=== PATIENT | female | born 1970 | race Two or more races ===

== ENCOUNTER → 2024-02-27 | Outpatient (CLI) | payer MEDICAID, SELFPAY ==
--- NOTE | 2024-02-27 10:15 | XR_ITS ---
Examination: Diagnostic digital mammography, bilateral Computer aided detection 3-D breast Tomosynthesis, bilateral Date and time of exam: February 27, 2024 0945 hours Compared to mammograms dating to July 03, 2019 INDICATIONS: Personal history right breast cancer 2018 Technique: Nonmagnified MLO, CC views of the breasts to been obtained, reconstructed from 3-D Tomosynthesis images. R2 computer aided detection program utilized for evaluation of suspicious masses and/or abnormal calcifications. 3-D Tomosynthesis images obtained. Findings: The breasts are heterogeneously dense, which may obscure small masses Extensive scar formation surgical clips right breast again depicted 8 mm focal asymmetry 12:00 position left breast anterior depth Impression: BI-RADS Category 0: Incomplete: Need additional imaging evaluation 8 mm focal asymmetry 12:00 position left breast anterior depth, recommend follow-up spot tomographic views of this asymmetry as well as left breast sonography to complete the workup
== END | disposition home or self-care (01) ==
LOC: CDIM 09:35
PROVIDERS: Referring Provider Family Medicine; Visit Provider Family Medicine
DX: R92.8 Other abnormal and inconclusive findings on diagnostic imaging of breast (principal); N64.89 Other specified disorders of breast
CPT/HCPCS: 77062; 77066; G0279

== ENCOUNTER → 2024-04-18 | Outpatient (CLI) | payer MEDICAID, SELFPAY ==
--- NOTE | 2024-04-18 08:45 | XR_ITS ---
Examination: Breast ultrasound, unilateral, left complete Date and time of exam: April 18, 2024 0727 hours INDICATIONS: Personal history right breast cancer, multiple left breast nodules on left breast sonogram June 07, 2013 Technique: Real-time velasco scale ultrasonographic imaging performed left breast including all 4 quadrants as well as nipple retroareolar and axillary region. Findings: No cystic or solid masses IMPRESSION: BI-RADS Category 1: Negative study
--- NOTE | 2024-04-18 09:15 | XR_ITS ---
Examination: Diagnostic digital mammography, unilateral, left Computer aided detection 3-D breast Tomosynthesis, unilateral Date and time of exam: April 18, 2024 0743 hours INDICATIONS: Mammogram February 27, 2024 8 mm focal asymmetry 12:00 position left breast anterior depth Technique: Nonmagnified MLO, CC views of the left breast have been obtained, reconstructed from 3-D Tomosynthesis images. R2 computer aided detection program utilized for evaluation of suspicious masses and/or abnormal calcifications. 3-D Tomosynthesis images obtained. Findings: The breast is heterogeneously dense, which may obscure small masses No suspicious masses confirmed on the spot compression views Impression: BI-RADS category 2: Benign findings Return to yearly follow-up mammography
== END | disposition home or self-care (01) ==
LOC: CDIM 07:06
PROVIDERS: PCP Family Medicine; Referring Provider Family Medicine; Visit Provider Family Medicine
DX: R92.322 Mammographic fibroglandular density, left breast (principal); Z48.02 Encounter for removal of sutures
CPT/HCPCS: 76641; 77061; 77065; G0279

== ENCOUNTER 2024-04-19 09:10 | Outpatient (RCR) | payer MEDICAID, SELFPAY ==
[2024-04-18 16:17] LABS: Basophils % (Auto) 0 % (0-2.5); Eosinophils # (Auto) 0.1 Thou/mm3 (0.0-0.5); Eosinophils % (Auto) 1 % (0-10); Hematocrit 37.5 % (36.0-46.0); Hemoglobin 11.8 g/dL (12.0-16.0); Immature Granulocytes % (Auto) 0 % (0-0); Immature Granulocytes Auto 0.02 Thou/mm3 (0.00-0.00); Lymphocytes # (Auto) 2.5 Thou/mm3 (1.0-4.8); Lymphocytes % (Auto) 30 % (10-50); Mean Corpuscular HGB Conc 31.5 g/dl (31.0-37.0); Mean Corpuscular Hemoglobin 25.7 pg (25.0-35.0); Mean Corpuscular Volume 82 fL (80-100); Monocytes # (Auto) 0.5 Thou/mm3 (0.0-0.8); Monocytes % (Auto) 6 % (0-12); Neutrophils # (Auto) 5.4 Thou/mm3 (1.8-7.7); Neutrophils % (Auto) 64 % (37-80); Nucleated Red Blood Cell % 0 /100 WBC (0); Platelet Count 314 Thou/mm3 (140-440); RDW Standard Deviation 39.2 fL (36.4-46.3); Red Blood Count 4.59 Miln/mm3 (4.00-5.20); White Blood Count 8.5 Thou/mm3 (3.6-11.0)
[2024-04-18 16:36] LABS: Alanine Aminotransferase 26 U/L (10-49); Albumin, Serum 4.6 gm/dL (3.5-5.0); Albumin/Globulin Ratio 1.4 (1.2-2.2); Alkaline Phosphatase 65 U/L (46-116); Anion Gap 12 (7-16); Aspartate Amino Transferase 25 U/L (0-34); BUN/Creatinine Ratio 17 Ratio (12-20); Bilirubin,Total 0.8 mg/dL (0.3-1.2); Blood Urea Nitrogen 12 mg/dL (9-23); Calcium 9.7 mg/dL (8.3-10.6); Calcium (Corrected) 9.7 mg/dL (8.5-10.1); Carbon Dioxide 25.5 mMol/L (20.0-31.0); Chloride 103 mMol/L (98-107); Creatinine (Component) 0.7 mg/dL (0.6-1.3); Globulin 3.4 gm/dL (2.3-3.5); Glucose 95 mg/dL (74-106); Osmolality,Calculated 279 (275-295); Potassium 3.5 mMol/L (3.4-5.1); Sodium 140 mMol/L (136-145); eGFR > 60 See Note
[2024-04-18 16:53] LABS: CA 15-3 2.9 U/mL (<32.4); Carcinoembryonic Antigen < 0.5 ng/mL (0.0-5.0)
--- NOTE | 2024-04-19 13:15 | CTCFLWUP_ITS ---
Patient: JOHN VALDIVIA : 1970 Page 2 of 2 FOLLOW UP NOTE DATE OF SERVICE: 04/19/2024 NAME: JOHN VALDIVIA ACCOUNT: [id number] : 1970 AGE: 54 INTERVAL HISTORY: Patient doing well. Patient takes anastrozole along with alendronate. Patient is doing well and hav e no complaints. ONCOLOGY HISTORY: DIAGNOSIS: Malignant neoplasm of upper-outer quadrant of right female breast [ICD10] C50.411 DATE OF DIAGNOSIS: 06/17/2017 STAGE/TNM: stage IIa, pT2, N0,cM0 disease ER positive IL negative HER2 positive treated with TCH P On Femara TREATMENT HISTORY: Care?Plan Start?Date Cycle Day Intent DOCETAXEL,?HERCEPTIN,?PERJETA,?CARBO 08/31/2017 1 21 Curative?(adjuvant) Trastuzumab?6?mg/kg? To?Finish?the?Year 08/30/2017 1 21 Curative?(adjuvant) VENOfer?200mg?IV?wkly 04/16/2020 1 70 Palliative VENOfer?200mg?IV?wkly?for?5?weeks 03/24/2022 1 70 Curative?(primary) HISTORY OF PRESENT ILLNESS: John Martin is a 54-year-old Turkmen-speaking female, postmenopausal with history of total vaginal hysterectomy (08/12/2009) when she was 39 years of age, has the followin g oncology history. 06/17/2017: Patient had right breast lumpectomy and sentinel node biopsy. Pathology specimen showed 4 .2 x 3.9 x 3.4 cm high-grade ER positive IL negative HER-2/manav overexpressed invasive ductal carcinoma with medullar y features. 3 sentinel lymph nodes were negative for metastatic disease. No lymphovascular invasion was identified . It was staged as stage IIa, pT2, N0,cM0 disease. Patient had echocardiogram done on 08/16/2017 which showed her ejecti on fraction to be within normal range between 50 and 55%. 08/31/2017?12/20/2017: Patient received 6 cycles of TCH plus Perjeta in the adjuvant setting. 02/24/2018: DEXA scan?There is normal mineralization based on lumbar spine measurements. There is normal mineralization based on hip measurements 03/24/2018: Total serum estrogens 72.4 (postmenopausal range 50?1 70), luteinizing hormone 41 (postme nopausal range 10?50 4.7), FSH 60.38 (postmenopausal range 23?1 116.3) 01/24/2018?03/17/2018: Patient had 6300 cGy of radiation therapy to the right breast. 04/24/2018: Patient was started on Femara 2.5 mg p.o. daily 08/31/2017? 08/23/2018: Patient received a total of 17 Herceptin treatments including the ones given dur ing TC chemotherapy. 10/13/2020: Bone densitometry? 02/17/2022: Bilateral screening mammograms? 04/11/2023: Bone density test? OTHER MEDICAL HISTORY/CONDITIONS: FAMILY HISTORY: ?Clone Family Hx? SOCIAL HISTORY: [employer]ER HISTORY: MEDICATIONS: 1. alendronate - 35 mg 1 tab one tab po q weekly 2. busPIRone - 15 mg 1 tab As directed 3. Citracal Chew - 500 mg-1,000 unit-40 mcg 1 tab one tab po twice a day 4. letrozole - 2.5 mg 1 tab Daily 5. losartan - 50 mg As directed 6. Womens Daily Gummies - 200 mcg 1 tab Daily?Palabra Meds? Medications Last Reconciled by Alesia Joe MA on 04/19/2024 ALLERGIES: No Known Allergies; No Known Drug Allergies REVIEW OF SYSTEMS: A complete 14-point review of systems was performed and is negative except as noted in interval histo ry. PHYSICAL EXAMINATION: VITAL SIGNS: Temperature?99.1, B/P?145/90, Oxygen?Saturation?96% Weight?222?lbs (Change?since?04/18/24 :?1.4?lbs) PAIN: 0 - No pain ECOG Performance Status: 0 - Asymptomatic and fully active GENERAL APPEARANCE: Appears well, in no apparent distress, appropriately interactive. HEENT: Normocephalic, no temporal wasting, normal conjunctiva, no scleral icterus, normal hearing, li ps without lesions, neck normal range of motion. CARDIOVASCULAR: Not assessed. PULMONARY: Normal respiratory effort, no respiratory distress or use of accessory muscles, speaking i n full sentences, no tachypnea. EXTREMITIES: No pedal edema or cyanosis. SKIN: Normal skin appearance. NEUROLOGIC: Alert and oriented x4. PSHYCHIATRIC: Appropriate affect, mood normal, behavior normal, intact thought and speech. Breast examination reveals thickened breast but no palpable masses LABORATORY DATA: I have personally reviewed and interpreted each of the patient?s relevant lab tests, abnormal finding s are below: Date 04/18/24 ??WHITE?BLOOD?COUNT?(Thou/mm3) 8.5 ??RED?BLOOD?COUNT?(Miln/mm3) 4.59 ??HEMOGLOBIN?(gm/dl) 11.8?L ??HEMATOCRIT?(%) 37.5 ??PLATELET?COUNT?(Thou/mm3) 314 ??NEUTROPHILS?%,?AUTO?(%) 64 ??LYMPH?%,?AUTO?(%) 30 ??NEUTROPHILS,?AUTO?(Thou/mm3) 5.4 ASSESSMENT/PLAN: #1 stage II breast cancer Ms. Valdivia is tolerating letrozole well without any significant side effects. Denies any body aches or muscle pains. Bone density test done on 04/11/2023 showed osteopenia. ER positive, IL negative HER-2/manav overexpressed high-grade invasive ductal carcinoma with medullary features of right breast. No clinical evidence of recurrence. Currently patient is on Femara and [id number]-[id number] calcium tablets. Continue Citracal 1 tablet p.o. twice daily. #2 worsening osteopenia Patient is having worsening osteopenia in the spine Patient have backache at times patient is on Alendronate 35 mg p.o. once a week. Discussed with Ms. Valdivia that patient need Zometa or Prolia to prevent further loss of her bon e density Will start Zometa once patient is cleared by the dentist Zometa will help to strengthen patient's back and prevent further loss of bone as well as adjuvantly will help to prevent reoccurrence of breast cancer and metastasis to the bones Will start Zometa once cleared by dentist CBC CMP Zometa RETURN TO CLINIC: I will see her back in the clinic in 3 months. BILLING AND COMPLIANCE: I reviewed external records from providers outside my specialty as summarized above. I spent a total of 50 minutes on this patient?s care on the day of their visit excluding time spent related to any bi lled procedures. This time includes time spent with the patient as well as time spent documenting in the medical record, reviewing patients records and tests, obtaining history, placing orders, communi cating with other healthcare professionals, counseling the patient, family or caregiver, and/or care coordination for the diagnoses above. Electronically Signed by: Gaurav Farias MD T: 1:13 PM CC: Mike?Ron,?, Chio?Frankie? PCP: Mike Velasquez Referring: Mike Velasquez This document was completed utilizing speech recognition software. Grammatical errors, random word in sertions, pronoun errors, and incomplete sentences are an occasional consequence of this system due t o software limitations, ambient noise, and hardware issues. Any formal questions or concerns about th e content, text or information contained within the body of this dictation should be directly address ed to the provider for clarification.
== END 2024-04-27 23:59 | disposition home or self-care (01) ==
LOC: SCTC 09:10
PROVIDERS: PCP Family Medicine; Referring Provider Family Medicine; Visit Provider Internal Medicine Hematology & Oncology
DX: C50.411 Malignant neoplasm of upper-outer quadrant of right female breast (principal); Z17.0 Estrogen receptor positive status [ER+]; Z17.22 Progesterone receptor negative status; Z17.31 Human epidermal growth factor receptor 2 positive status; M85.88 Other specified disorders of bone density and structure, other site; Z79.811 Long term (current) use of aromatase inhibitors
CPT/HCPCS: 36591; 80053; 82378; 85025; 86300; 99212; A4216; J1642; G0463

== ENCOUNTER → 2024-06-14 | Outpatient (CLI) | payer MEDICAID, SELFPAY ==
--- NOTE | 2024-06-14 11:30 | XR_ITS ---
Examination: Screening digital mammography, bilateral Computer aided detection 3-D breast Tomosynthesis, bilateral Date and time of exam: June 14, 2024 0941 hours Compared to mammograms dating to February 03, 2021 Indication: Screening Technique: Nonmagnified MLO, CC views of the breasts to been obtained, reconstructed from 3-D Tomosynthesis images. R2 computer aided detection program utilized for evaluation of suspicious masses and/or abnormal calcifications. 3-D Tomosynthesis images obtained. Findings: The breasts are heterogeneously dense, which may obscure small masses Extensive scar formation right breast surgical clips skin thickening again noted consistent with treated right breast cancer 2017 6 mm focal asymmetry upper left breast MLO view anterior depth, 9 cm from the nipple Impression: BI-RADS Category 0: Incomplete: Need additional imaging evaluation 6 mm focal asymmetry upper left breast MLO view 9 cm from the nipple, recommend follow-up spot tomographic views upper quadrant left breast, right breast sonography to complete the workup, as left breast sonography has already been performed April 18, 2024
== END | disposition home or self-care (01) ==
LOC: CDIM 10:01
PROVIDERS: Referring Provider Internal Medicine Hematology & Oncology; Visit Provider Internal Medicine Hematology & Oncology
DX: Z12.31 Encounter for screening mammogram for malignant neoplasm of breast (principal); R92.8 Other abnormal and inconclusive findings on diagnostic imaging of breast; N64.89 Other specified disorders of breast; C50.411 Malignant neoplasm of upper-outer quadrant of right female breast
CPT/HCPCS: 77063; 77067

== ENCOUNTER 2024-08-23 14:13 | Outpatient (RCR) | payer MEDICAID, SELFPAY ==
[2024-08-23 15:43] LABS: Basophils % (Auto) 0 % (0-2.5); Eosinophils # (Auto) 0.1 Thou/mm3 (0.0-0.5); Eosinophils % (Auto) 1 % (0-10); Hematocrit 38.5 % (36.0-46.0); Hemoglobin 12.6 g/dL (12.0-16.0); Immature Granulocytes % (Auto) 0 % (0-0); Immature Granulocytes Auto 0.02 Thou/mm3 (0.00-0.00); Lymphocytes # (Auto) 2.8 Thou/mm3 (1.0-4.8); Lymphocytes % (Auto) 28 % (10-50); Mean Corpuscular HGB Conc 32.7 g/dl (31.0-37.0); Mean Corpuscular Hemoglobin 26.1 pg (25.0-35.0); Mean Corpuscular Volume 80 fL (80-100); Monocytes # (Auto) 0.7 Thou/mm3 (0.0-0.8); Monocytes % (Auto) 7 % (0-12); Neutrophils # (Auto) 6.3 Thou/mm3 (1.8-7.7); Neutrophils % (Auto) 64 % (37-80); Nucleated Red Blood Cell % 0 /100 WBC (0); Platelet Count 347 Thou/mm3 (140-440); RDW Standard Deviation 37.3 fL (36.4-46.3); Red Blood Count 4.83 Miln/mm3 (4.00-5.20); White Blood Count 9.9 Thou/mm3 (3.6-11.0)
[2024-08-23 16:15] LABS: Alanine Aminotransferase 43 U/L (10-49); Albumin, Serum 4.6 gm/dL (3.5-5.0); Albumin/Globulin Ratio 1.5 (1.2-2.2); Alkaline Phosphatase 65 U/L (46-116); Anion Gap 12 (7-16); Aspartate Amino Transferase 45 U/L (0-34); BUN/Creatinine Ratio 16 Ratio (12-20); Bilirubin,Total 0.9 mg/dL (0.3-1.2); Blood Urea Nitrogen 13 mg/dL (9-23); Calcium 9.2 mg/dL (8.3-10.6); Calcium (Corrected) 9.2 mg/dL (8.5-10.1); Carbon Dioxide 25.2 mMol/L (20.0-31.0); Chloride 104 mMol/L (98-107); Creatinine (Component) 0.8 mg/dL (0.6-1.3); Globulin 3.1 gm/dL (2.3-3.5); Glucose 108 mg/dL (74-106); Osmolality,Calculated 282 (275-295); Potassium 3.8 mMol/L (3.4-5.1); Sodium 141 mMol/L (136-145); Total Protein 7.7 gm/dL (5.7-8.2); eGFR > 60 See Note
[2024-08-23 16:32] LABS: CA 15-3 1.3 U/mL (<32.4); Carcinoembryonic Antigen < 0.5 ng/mL (0.0-5.0)
== END 2024-08-25 23:59 | disposition home or self-care (01) ==
LOC: SCTC 14:13
PROVIDERS: PCP Family Medicine; Referring Provider Family Medicine; Visit Provider Internal Medicine Hematology & Oncology
DX: C50.411 Malignant neoplasm of upper-outer quadrant of right female breast (principal); Z17.0 Estrogen receptor positive status [ER+]; Z17.22 Progesterone receptor negative status; Z17.32 Human epidermal growth factor receptor 2 negative status; Z79.811 Long term (current) use of aromatase inhibitors; M85.88 Other specified disorders of bone density and structure, other site; Z90.11 Acquired absence of right breast and nipple
CPT/HCPCS: 36591; 80053; 82378; 85025; 86300; A4216; J1642

== ENCOUNTER 2024-10-25 13:26 | Outpatient (RCR) | payer MEDICAID, SELFPAY ==
[2024-10-25 16:36] LABS: Basophils # (Auto) 0.0 Thou/mm3 (0.0-0.2); Basophils % (Auto) 1 % (0-2.5); Eosinophils # (Auto) 0.1 Thou/mm3 (0.0-0.5); Eosinophils % (Auto) 1 % (0-10); Hematocrit 38.9 % (36.0-46.0); Hemoglobin 12.5 g/dL (12.0-16.0); Immature Granulocytes Auto 0.02 Thou/mm3 (0.00-0.00); Lymphocytes # (Auto) 2.5 Thou/mm3 (1.0-4.8); Lymphocytes % (Auto) 31 % (10-50); Mean Corpuscular HGB Conc 32.1 g/dl (31.0-37.0); Mean Corpuscular Hemoglobin 26.2 pg (25.0-35.0); Mean Corpuscular Volume 81 fL (80-100); Monocytes # (Auto) 0.4 Thou/mm3 (0.0-0.8); Monocytes % (Auto) 5 % (0-12); Neutrophils # (Auto) 5.0 Thou/mm3 (1.8-7.7); Neutrophils % (Auto) 63 % (37-80); Nucleated Red Blood Cell # 0.00 Thou/mm3 (0.00-0.00); Nucleated Red Blood Cell % 0 /100 WBC (0); Platelet Count 331 Thou/mm3 (140-440); RDW Standard Deviation 38.8 fL (36.4-46.3); Red Blood Count 4.78 Miln/mm3 (4.00-5.20); White Blood Count 8.0 Thou/mm3 (3.6-11.0)
[2024-10-25 17:00] LABS: Alanine Aminotransferase 51 U/L (10-49); Albumin, Serum 4.4 gm/dL (3.5-5.0); Albumin/Globulin Ratio 1.3 (1.2-2.2); Alkaline Phosphatase 65 U/L (46-116); Anion Gap 10 (7-16); Aspartate Amino Transferase 55 U/L (0-34); BUN/Creatinine Ratio 17 Ratio (12-20); Bilirubin,Total 0.6 mg/dL (0.3-1.2); Blood Urea Nitrogen 12 mg/dL (9-23); Calcium 10.1 mg/dL (8.3-10.6); Calcium (Corrected) 10.1 mg/dL (8.5-10.1); Carbon Dioxide 26.0 mMol/L (20.0-31.0); Chloride 105 mMol/L (98-107); Creatinine (Component) 0.7 mg/dL (0.6-1.3); Globulin 3.4 gm/dL (2.3-3.5); Glucose 103 mg/dL (74-106); Osmolality,Calculated 280 (275-295); Potassium 3.5 mMol/L (3.4-5.1); Sodium 141 mMol/L (136-145); Total Protein 7.8 gm/dL (5.7-8.2); eGFR > 60 See Note
[2024-10-25 17:52] LABS: Hepatitis A Antibody IgM Non Reactive (Non React); Hepatitis B Core Antibody IgM Non Reactive (Non React); Hepatitis B Surface Antigen Non Reactive (Non React); Hepatitis C Antibody Non Reactive (Non React)
== END 2024-10-25 23:59 | disposition home or self-care (01) ==
LOC: SCTC 13:26
PROVIDERS: PCP Family Medicine; Referring Provider Family Medicine; Visit Provider Nurse Practitioner Family
DX: C50.411 Malignant neoplasm of upper-outer quadrant of right female breast (principal); Z17.0 Estrogen receptor positive status [ER+]; Z17.22 Progesterone receptor negative status; Z17.31 Human epidermal growth factor receptor 2 positive status; Z79.811 Long term (current) use of aromatase inhibitors; M85.88 Other specified disorders of bone density and structure, other site; Z90.11 Acquired absence of right breast and nipple
CPT/HCPCS: 36591; 80053; 80074; 85025; 99212; A4216; J1642; G0463

== ENCOUNTER → 2025-01-01 | Outpatient (CLI) | payer MEDICAID, SELFPAY ==
--- NOTE | 2025-01-01 08:30 | XR_ITS ---
Examination: Breast ultrasound, unilateral, right complete Date and time of exam: January 01, 2025, 0820 hours INDICATIONS: Mammogram June 14, 2024 6 mm focal asymmetry upper left breast MLO view, 9 cm from the nipple Technique: Real-time velasco scale ultrasonographic imaging performed right breast including all 4 quadrants as well as nipple retroareolar and axillary region. Findings: 12:00 mass with irregular indistinct margins 18 x 13 x 12 mm in this patient with a history of right breast cancer and lobectomy 2017 IMPRESSION: BI-RADS Category 3, probably benign findings, 3 months right breast sonogram follow-up strongly recommended to document stability of architectural distortion described above
--- NOTE | 2025-01-01 09:00 | XR_ITS ---
Examination: Diagnostic digital mammography, unilateral, January 01, 2025, 0903 hours INDICATION: Computer aided detection 3-D breast Tomosynthesis, unilateral Date and time of exam: January 01 0 25, 0902 hours INDICATIONS: Mammogram June 14, 2024 6 mm focal asymmetry upper left breast 9 cm from the nipple Technique: Nonmagnified MLO, CC views of the left breast have been obtained, reconstructed from 3-D Tomosynthesis images. R2 computer aided detection program utilized for evaluation of suspicious masses and/or abnormal calcifications. 3-D Tomosynthesis images obtained. Findings: The breast is heterogeneously dense, which may obscure small masses Focal asymmetry remains upper outer left breast, indistinct margins, at least 15 mm Impression: BI-RADS category 0: Incomplete: Need additional imaging evaluation Recommend this patient have follow-up left breast sonography at this time with a radiologist in attendance
== END | disposition home or self-care (01) ==
LOC: CDIM 07:55
PROVIDERS: Referring Provider Nurse Practitioner Family; Visit Provider Nurse Practitioner Family
DX: R92.8 Other abnormal and inconclusive findings on diagnostic imaging of breast (principal); C50.411 Malignant neoplasm of upper-outer quadrant of right female breast
CPT/HCPCS: 76641; 77061; 77065; G0279

== ENCOUNTER 2025-01-08 09:53 | Outpatient (RCR) | payer MEDICAID, SELFPAY ==
[2025-01-07 11:14] LABS: Basophils # (Auto) 0.0 Thou/mm3 (0.0-0.2); Basophils % (Auto) 0 % (0-2.5); Eosinophils # (Auto) 0.1 Thou/mm3 (0.0-0.5); Eosinophils % (Auto) 2 % (0-10); Hematocrit 37.9 % (36.0-46.0); Hemoglobin 12.1 g/dL (12.0-16.0); Immature Granulocytes Auto 0.02 Thou/mm3 (0.00-0.00); Lymphocytes # (Auto) 2.4 Thou/mm3 (1.0-4.8); Lymphocytes % (Auto) 35 % (10-50); Mean Corpuscular HGB Conc 31.9 g/dl (31.0-37.0); Mean Corpuscular Hemoglobin 26.1 pg (25.0-35.0); Mean Corpuscular Volume 82 fL (80-100); Monocytes # (Auto) 0.4 Thou/mm3 (0.0-0.8); Monocytes % (Auto) 6 % (0-12); Neutrophils # (Auto) 3.9 Thou/mm3 (1.8-7.7); Neutrophils % (Auto) 56 % (37-80); Nucleated Red Blood Cell # 0.00 Thou/mm3 (0.00-0.00); Nucleated Red Blood Cell % 0 /100 WBC (0); Platelet Count 286 Thou/mm3 (140-440); RDW Standard Deviation 39.4 fL (36.4-46.3); Red Blood Count 4.63 Miln/mm3 (4.00-5.20); White Blood Count 6.9 Thou/mm3 (3.6-11.0)
[2025-01-07 11:17] LABS: Alanine Aminotransferase 31 U/L (10-49); Albumin, Serum 4.3 gm/dL (3.5-5.0); Albumin/Globulin Ratio 1.4 (1.2-2.2); Alkaline Phosphatase 58 U/L (46-116); Anion Gap 12 (7-16); Aspartate Amino Transferase 32 U/L (0-34); BUN/Creatinine Ratio 17 Ratio (12-20); Bilirubin,Total 0.6 mg/dL (0.3-1.2); Blood Urea Nitrogen 10 mg/dL (9-23); Calcium 9.2 mg/dL (8.3-10.6); Calcium (Corrected) 9.2 mg/dL (8.5-10.1); Carbon Dioxide 26.5 mMol/L (20.0-31.0); Chloride 105 mMol/L (98-107); Creatinine (Component) 0.6 mg/dL (0.6-1.3); Globulin 3.0 gm/dL (2.3-3.5); Glucose 141 mg/dL (74-106); Osmolality,Calculated 285 (275-295); Potassium 3.9 mMol/L (3.4-5.1); Sodium 143 mMol/L (136-145); Total Protein 7.3 gm/dL (5.7-8.2); eGFR > 60 See Note
== END 2025-01-25 23:59 | disposition home or self-care (01) ==
LOC: SCTC 09:53
PROVIDERS: PCP Family Medicine; Referring Provider Family Medicine; Visit Provider Nurse Practitioner Family
DX: C50.811 Malignant neoplasm of overlapping sites of right female breast (principal); Z17.0 Estrogen receptor positive status [ER+]; Z17.22 Progesterone receptor negative status; Z17.31 Human epidermal growth factor receptor 2 positive status; Z90.11 Acquired absence of right breast and nipple; M85.88 Other specified disorders of bone density and structure, other site; Z79.811 Long term (current) use of aromatase inhibitors
CPT/HCPCS: 36591; 80053; 85025; 99212; A4216; J1642; G0463

== ENCOUNTER → 2025-03-01 | Outpatient (CLI) | payer MEDICAID, SELFPAY ==
--- NOTE | 2025-03-01 09:00 | XR_ITS ---
Examination: Breast ultrasound, unilateral, left Date and time of exam: March 01, 2025, 0915 hours INDICATIONS: Mammogram January 01, 2025 focal asymmetry remains upper outer left breast indistinct margins, at least 15 mm Technique: Real-time velasco scale ultrasonographic imaging performed left breast including all 4 quadrants as well as nipple retroareolar and axillary region. Findings: No cystic or solid masses depicted IMPRESSION: BI-RADS Category 1: Negative study
== END | disposition home or self-care (01) ==
LOC: SDIM 08:06
PROVIDERS: PCP Family Medicine; Referring Provider Nurse Practitioner Family; Visit Provider Nurse Practitioner Family
DX: C50.411 Malignant neoplasm of upper-outer quadrant of right female breast (principal)
CPT/HCPCS: 76641

== ENCOUNTER 2025-03-14 07:24 | Outpatient (RCR) | payer MEDICAID, SELFPAY | END 2025-03-27 23:59 | disposition home or self-care (01) | LOC: SCTC 07:24 | PROVIDERS: PCP Family Medicine; Referring Provider Family Medicine; Visit Provider Nurse Practitioner Family | DX: C50.411 Malignant neoplasm of upper-outer quadrant of right female breast (principal); Z17.0 Estrogen receptor positive status [ER+]; Z17.22 Progesterone receptor negative status; Z17.31 Human epidermal growth factor receptor 2 positive status; Z79.811 Long term (current) use of aromatase inhibitors; M85.88 Other specified disorders of bone density and structure, other site | CPT/HCPCS: 36591; 99212; A4216; J1642; G0463 ==